=== PATIENT | female | born 1935 | race Caucasian/White ===

== ENCOUNTER → 2018-09-14 10:30 | Outpatient (CLI) | payer MEDICARE, OTHER, SELFPAY ==
--- NOTE | 2018-09-14 | DI.MG.S_ITS ---
BILATERAL DIGITAL SCREENING MAMMOGRAM 3D/2D WITH CAD: 09/14/2018 CLINICAL: Routine screening. Comparison is made to exams dated: 07/08/2017 mammogram, 01/14/2009 mammogram, and 08/17/2006 mammogram - [facility]. There are scattered fibroglandular elements in both breasts. Current study was also evaluated with a Computer Aided Detection (CAD) system. There are benign calcifications in both breasts. No significant masses, calcifications, or other findings are seen in either breast. There has been no significant interval change. IMPRESSION: There is no mammographic evidence of malignancy. A 1 year screening mammogram is recommended. This exam was interpreted at Station ID: [id number]. NOTE: For mammograms, a report in lay terms will be sent to the patient. Approximately 15% of breast malignancies will not be visualized mammographically. In the management of a palpable breast mass, a negative mammogram must not discourage biopsy of a clinically suspicious lesion. Electronically Signed By: Parth martin/malcom:09/15/2018 06:11:32 letter sent: Normal Exam ACR BI-RADS Category 2: Benign Finding(s) 3342F
== END ==
PROVIDERS: Family Provider Family Medicine; PCP Family Medicine; Visit Provider Family Medicine
DX: Z12.31 Encounter for screening mammogram for malignant neoplasm of breast (principal)
CPT/HCPCS: 77063; 77067

== ENCOUNTER → 2018-10-02 09:41 | Outpatient (CLI) | payer MEDICARE, OTHER, SELFPAY ==
[2018-10-02 10:45] LABS: Add Manual Diff / Slide Review NO; Basophils Absolute Auto 0 /uL (0-100); Basophils Percent Auto 0.6 % (0-2); Eosinophils Absolute Auto 100 /uL (0-450); Eosinophils Percent Auto 2.6 % (2-4); Hematocrit 43.4 % (36-46); Hemoglobin 14.3 g/dL (12.0-16.0); Lymphocytes Absolute Auto 1600 /uL (1100-4500); Lymphocytes Percent Auto 29.1 % (25-40); Mean Corpuscular Hemoglobin 30.9 PG (26-34); Mean Corpuscular Volume 93.5 fL (80-100); Monocytes Absolute Auto 400 /uL (0-900); Monocytes Percent Auto 6.7 % (3-14); Neutrophils Absolute Auto 3300 /uL (1500-7000); Platelet Count 153 X10^3/uL (150-400); Red Blood Cell Count 4.64 X10^6/uL (4.0-5.2); Red Cell Distribution Width 13.5 % (11.6-14.8); White Blood Cell Count 5.5 X10^3/uL (4.5-11.0)
[2018-10-02 10:53] LABS: Alanine Aminotransferase 29 IU/L (9-52); Albumin 4.3 g/dL (3.5-5.0); Albumin Globulin Ratio 1.7 (1.0-2.8); Alkaline Phosphatase 52 U/L (38-126); Aspartate Aminotransferase 24 IU/L (14-36); BUN Creatinine Ratio 25.6 (6-22); Bilirubin Total 0.5 mg/dL (0.2-1.3); Blood Urea Nitrogen 23 mg/dL (7-17); Calcium 9.8 mg/dL (8.4-10.2); Carbon Dioxide 26 mmol/L (22-32); Chloride 110 mmol/L (98-107); Cholesterol 173 mg/dL (140-199); Estimated Glomerular Filt Rate > 60.0 mL/min (>60); Globulin 2.6 g/dL (1.7-4.1); Glucose 102 mg/dL (80-110); HDL Cholesterol 58 mg/dL (40-60); HEMOLYSIS < 15 (0-50); LDL Cholesterol Calculated 92 mg/dL (<100); Potassium 4.3 mmol/L (3.4-5.1); Sodium 143 mmol/L (137-145); Total Protein 6.9 g/dL (6.3-8.2); Triglycerides 114 mg/dL (35-150)
[2018-10-02 11:22] LABS: Thyroid Stimulating Hormone 2.41 uIU/mL (0.47-4.68)
== END ==
PROVIDERS: PCP Family Medicine; Visit Provider Family Medicine
DX: E78.5 Hyperlipidemia, unspecified (principal); I10 Essential (primary) hypertension; Z92.29 Personal history of other drug therapy
CPT/HCPCS: 36415; 80053; 80061; 84443; 85025

== ENCOUNTER → 2018-12-20 11:12 | Outpatient (CLI) | payer MEDICARE, OTHER, SELFPAY | PROVIDERS: PCP Family Medicine; Visit Provider Family Medicine | DX: M54.9 Dorsalgia, unspecified (principal); R52 Pain, unspecified | CPT/HCPCS: 87077; 87086; 87186 ==

== ENCOUNTER → 2019-01-01 14:55 | Outpatient (CLI) | payer MEDICARE, OTHER, SELFPAY ==
[2019-01-01 15:22] LABS: Hemoglobin 15.9 g/dL (12.0-16.0); Mean Corpuscular HGB Conc 33.8 % (30-36); Mean Corpuscular Hemoglobin 30.6 PG (26-34); Mean Corpuscular Volume 90.5 fL (80-100); Platelet Count 217 X10^3/uL (150-400); Red Blood Cell Count 5.19 X10^6/uL (4.0-5.2); Red Cell Distribution Width 13.1 % (11.6-14.8); White Blood Cell Count 7.3 X10^3/uL (4.5-11.0)
[2019-01-01 15:49] LABS: Neutrophils Absolute Manual 4672 /uL (3000-5900); RBC Morphology Normal Morphology; Total Cells Counted 100
[2019-01-01 16:15] LABS: Alanine Aminotransferase 27 IU/L (9-52); Albumin 4.5 g/dL (3.5-5.0); Albumin Globulin Ratio 1.7 (1.0-2.8); Alkaline Phosphatase 52 U/L (38-126); Aspartate Aminotransferase 25 IU/L (14-36); BUN Creatinine Ratio 22.7 (6-22); Bilirubin Total 0.6 mg/dL (0.2-1.3); Blood Urea Nitrogen 34 mg/dL (7-17); Calcium 10.8 mg/dL (8.4-10.2); Carbon Dioxide 27 mmol/L (22-32); Chloride 101 mmol/L (98-107); Estimated Glomerular Filt Rate 33.2 mL/min (>60); Globulin 2.6 g/dL (1.7-4.1); Glucose 102 mg/dL (80-110); HEMOLYSIS < 15 (0-50); Potassium 4.9 mmol/L (3.4-5.1); Sodium 138 mmol/L (137-145); Total Protein 7.1 g/dL (6.3-8.2)
[2019-01-01 16:43] LABS: TSH w/ Reflex to FT4 2.34 uIU/mL (0.47-4.68)
[2019-01-01 17:03] LABS: Vitamin B12 662 pg/mL (239-931)
== END ==
PROVIDERS: PCP Family Medicine; Visit Provider Family Medicine
DX: E78.5 Hyperlipidemia, unspecified (principal); I10 Essential (primary) hypertension; R50.9 Fever, unspecified; R53.83 Other fatigue
CPT/HCPCS: 36415; 80053; 82607; 84443; 85025

== ENCOUNTER → 2019-01-08 10:23 | Outpatient (CLI) | payer MEDICARE, OTHER, SELFPAY ==
--- NOTE | 2019-01-26 16:23 | PM.CARDMON.1 ---
Medical Referral Coordinator Report Referral & Results Date Patient Seen: 01/08/19 Requesting provider: Benoit Tejada Indication: PVCs Duration of monitoring (days): 7 Diary information: There were 3 patient triggered events and 1 patient diary entry Patient events were associated with sinus rhythm, PACs, and PVCs Data: Minimum heart rate identified was 53 beats per minute at 04:07 on 01/11/2019 Maximum sinus heart rate was 129 beats per minute at 13:12 on 01/13/2019 Maximum overall heart rate was 207 beats per minute at 19:08 on 01/12/2019 during a 15 beat run of SVT Less than 1% of identified beats rather ventricular supraventricular ectopic in origin Patient had 6 runs of SVT the longest lasting 13.9 seconds at a rate of 117 beats per minute which suggest atrial tachycardia rather than true SVT Impression: Minor supraventricular dysrhythmias above Otherwise 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
== END ==
PROVIDERS: PCP Family Medicine; Visit Provider Family Medicine
DX: I49.3 Ventricular premature depolarization (principal)
CPT/HCPCS: 0296T

== ENCOUNTER → 2019-01-08 11:08 | Outpatient (CLI) | payer MEDICARE, OTHER, SELFPAY ==
--- NOTE | 2019-01-08 11:10 | DI.CT.S_ITS ---
PROCEDURE: CT ABDOMEN PELVIS WO CON INDICATIONS: Renal Failure Wt loss Abdominal Pain TECHNIQUE: Noncontrast 5 mm thick sections acquired from the diaphragms to the symphysis. 5 mm coronal and sagittal reformats were then performed. For radiation dose reduction, the following was used: automated exposure control, adjustment of mA and/or kV according to patient size. COMPARISON: CT abdomen pelvis 02/21/2006. FINDINGS: Image quality: Excellent. ABDOMEN: Lung bases: Lung bases are clear. Heart size is normal. Solid organs: Liver is normal in size. Heterogeneous hepatic steatosis. Gallbladder is unremarkable. Pancreas is normal in contours. Spleen is normal in size. No adrenal nodules. Kidneys are normal in size. No definite hydronephrosis. Cystic structures in the bilateral renal pelvis most likely peripelvic cysts. No hydroureter. A 5 mm calcification in at the distal right ureter, (2/65). This was not present on the CT from 2005. Peritoneum and bowel: Colonic surgical anastomosis in the left pelvis. Unenhanced bowel loops demonstrate normal wall thickness and caliber. No free fluid or air. The appendix is normal. No inflammatory change identified. Nodes and vessels: No retroperitoneal or mesenteric adenopathy by size criteria. Aorta and inferior vena cava are normal in caliber. Miscellaneous: Rectus diastases. Ventral abdominal wall mesh. Ventral abdominal wall scar. PELVIS: Genitourinary: Bladder wall thickness is normal. Miscellaneous: No inguinal hernias or adenopathy. Bones: No suspicious bony lesions. Lumbar spine degenerative change. Mild anterolisthesis of L4 on L5. No vertebral body compression fractures. IMPRESSION: 1. Calcification in the region of the distal right ureter measuring 5 mm. This is favored to represent a small kidney stone. No hydroureter or hydronephrosis appreciated. Small phlebolith is also noted differential. CT IVP would be helpful for further evaluation. 2. Probable bilateral parapelvic cysts. 3. No suspicious adenopathy. Dictated by: Bandar Roblero M.D. on 01/08/2019 at 12:46 Approved by: Bandar Roblero M.D. on 01/08/2019 at 13:08
== END ==
PROVIDERS: PCP Family Medicine; Visit Provider Family Medicine
DX: N19 Unspecified kidney failure (principal); I49.3 Ventricular premature depolarization; N28.89 Other specified disorders of kidney and ureter; R10.9 Unspecified abdominal pain; R63.4 Abnormal weight loss; M47.816 Spondylosis without myelopathy or radiculopathy, lumbar region; M43.16 Spondylolisthesis, lumbar region; K76.0 Fatty (change of) liver, not elsewhere classified; M62.08 Separation of muscle (nontraumatic), other site; Z98.0 Intestinal bypass and anastomosis status
CPT/HCPCS: 0296T; 0298T; 74176

== ENCOUNTER → 2019-01-24 08:56 | Outpatient (CLI) | payer MEDICARE, OTHER, SELFPAY ==
--- NOTE | 2019-01-24 08:58 | DI.ECHO.S_ITS ---
[facility] +---------+ Hospital +---------+ : : [address] [place] : : : : [id number] : : : : Phone: [phone] Echocardiogram Report + + :Name: KELSIE KAPLAN Study Date: 01/24/2019 Height: 63 in : :[facility] Exam Location: IS Weight: 145 lb : : Gender: Female BSA: 1.7 m2 : :: 1935 Age: 83 yrs BP: 148/91 mmHg: :Reason For Study: LBBB/PVC/ FATIGUE : :Ordering Physician: Dr. Laboy : :Terrell Performed By: Sasha Page : + + Interpretation Summary The left ventricle is normal in size. The ejection fraction is estimated to be 50-55%. There is a significant dyssynchronous contraction pattern, consistent with a conduction abnormality. Cannot exclude mild anteroseptal hypokinesis over and above the dyssynchronous wall motion caused by left bundle branch block There is mild mitral regurgitation. The right ventricular systolic pressure is estimated to be at least 27 mmHg based on an estimated right atrial pressure of 3 mm Hg. Procedure: A two-dimensional transthoracic echocardiogram with color flow and Doppler was performed. The study quality was technically adequate. There is no prior echocardiogram noted for this patient. The heart rate ranged between 63-79 bpm during the study. Left Ventricle: The left ventricle is normal in size. There is normal left ventricular wall thickness. Proximal septal thickening is noted. The ejection fraction is estimated to be 50-55%. There is a significant dyssynchronous contraction pattern, consistent with a conduction abnormality. Cannot exclude mild anteroseptal hypokinesis over and above the dyssynchronous wall motion caused by left bundle branch block. Right Ventricle: The right ventricle is mildly dilated. The right ventricular systolic function is normal. Atria: The left atrium is severely dilated. Right atrial size is normal. Chiari network (normal variant) is noted. There is no Doppler evidence for an interatrial shunt. Mitral Valve: The mitral valve leaflets appear mildly thickened, but open well. There is mild mitral annular calcification. There is mild mitral regurgitation. Aortic Valve: The aortic valve is trileaflet. The aortic valve opens well. There is trace aortic regurgitation. Tricuspid Valve: The tricuspid valve is normal in structure and function. There is trace tricuspid regurgitation. The right ventricular systolic pressure is estimated to be at least 27 mmHg based on an estimated right atrial pressure of 3 mm Hg. Pulmonic Valve: The pulmonic valve is not well visualized. There is trace pulmonic regurgitation. Great Vessels: The aortic root is normal size. The ascending aorta is mildly enlarged. The pulmonary artery is not well visualized, but is probably normal size. The IVC is of normal diameter and collapses greater than 50% with a sniff. This suggests a low right atrial pressure of 3 mm Hg. Pericardium/ Pleura There is no pericardial effusion. There is no pleural effusion. MMode/2D Measurements & Calculations LVIDd: 5.0 cm LVOT diam: 2.2 cm LVIDs: 3.9 cm Ao root diam: 3.3 cm FS: 22.7 % asc Aorta Diam: 4.1 cm EPSS: 0.85 cm IVSd: 0.88 cm LVPWd: 0.68 cm LV aaron. diameter/BSA (cm/m^2): 3.0 LV sys. diameter/BSA (cm/m^2): 2.3 LA A2 area: 27.0 cm2 RA long axis: 4.5 cm LA A4 area: 26.9 cm2 RA area: 13.9 cm2 LA length (vol): 6.2 cm RA vol: 36.4 ml LA vol: 99.4 ml RA : 21.6 ml/m2 LA vol index: 59.0 ml/m2 RVD1 (basal): 4.1 cm RVD2 (mid): 4.1 cm TAPSE: 2.0 cm Doppler Measurements & Calculations Ao V2 max: 123.5 cm/sec LVOT Max Isacc: 77.2 cm/sec Ao V2 mean: 86.2 cm/sec LV V1 max P.4 mmHg Ao max P.1 mmHg LV V1 VTI: 17.3 cm Ao mean P.3 mmHg ANUPAM(I,D): 2.4 cm2 Ao V2 VTI: 26.8 cm ANUPAM(V,D): 2.3 cm2 sev ratio: 0.65 ANUPAM indexed to BSA (cm^2/m^2): 1.4 Lat Peak E' Isacc: 7.5 cm/sec TR max isacc: 242.6 cm/sec MVA(VTI): 4.5 cm2 TR max P.5 mmHg PA V2 max: 55.4 cm/sec PA V2 mean: 37.2 cm/sec PA mean P.61 mmHg PA Accel Time: 0.06 sec MV V2 mean: 50.6 cm/sec SV(LVOT): 63.0 ml MV mean P.3 mmHg MV V2 VTI: 14.0 cm Reading Physician:05:10 PM
== END ==
PROVIDERS: PCP Family Medicine; Visit Provider Family Medicine
DX: I34.0 Nonrheumatic mitral (valve) insufficiency (principal); I44.7 Left bundle-branch block, unspecified; I49.3 Ventricular premature depolarization; R53.83 Other fatigue
CPT/HCPCS: 93306

== ENCOUNTER 2019-05-08 23:14 | Emergency (ER) | payer MEDICARE, OTHER, SELFPAY ==
[2019-05-08 23:20] VITALS: BP 215/87; PULSE 78; RESP 18; TEMP 36.3; O2SAT 97
[2019-05-08 23:38] LABS: Bilirubin Urine UA NEGATIVE (NEGATIVE); Color Urine UA YELLOW; Glucose Urine UA NEGATIVE (Negative); Ketones Urine UA TRACE (NEGATIVE); Leukocyte Esterase Urine UA 2+ (NEGATIVE); Nitrite Urine UA POSITIVE (Negative); Occult Blood Urine UA 3+ (Negative); Protein Urine UA TRACE (Negative); Urobilinogen Urine UA 0.2 E.U./dL (0.2)
[2019-05-08 23:45] LABS: Appearance Urine UA Slightly Cloudy; pH Urine UA 5.5 (4.5-8.0)
--- NOTE | 2019-05-08 23:45 | ED_ITS ---
HPI - Abdominal Pain General Chief Complaint: Abdominal Pain Stated Complaint: severe abdominal pain poss kidney stone Time Seen by Provider: 05/08/19 23:23 Source: patient Mode of arrival: Ambulatory Limitations: no limitations History of Present Illness HPI narrative: The patient developed abdominal pain with nausea and vomiting this afternoon. She has associated low back pain. She has urinary urgency. She has no fever but does feel like she has chills. She has vomiting. She has no diarrhea. She has occasional bladder infections, symptoms are not consistent what she is experiencing currently. She was on antibiotics about 1 week ago, she was given Zithromax for respiratory infection. She has no prior history of kidney stones. She has no prior history of chronic GI disease. Related Data Home Medications Medication Instructions Recorded Confirmed ASPIRIN (#ASPIRIN) 325 mg PO QDAY #0 02/01/12 04/15/19 Previous Rx's Medication Instructions Recorded triamcinolone acetonide 0 gm TOPICAL BID #1 tube 09/07/16 amlodipine 5 mg tablet 5 mg PO QDAY #90 tab 01/26/19 losartan 50 mg tablet 50 mg PO QDAY #90 tab 01/26/19 metoprolol succinate 25 mg 25 mg PO DAILY #90 tab 01/26/19 tablet,extended release 24 hr simvastatin 20 mg tablet 20 mg PO HS #90 tab 02/26/19 azithromycin 250 mg tablet See Rx Instructions PO .COMPLEX #6 04/15/19 tab benzonatate 100 mg capsule 100 mg PO BEDTIME #20 cap 04/15/19 triamterene 37.5 1 tab PO DAILY #90 each 04/20/19 mg-hydrochlorothiazide 25 mg tablet oxycodone-acetaminophen [Percocet] 1 tab PO Q4-6H PRN #14 tab 05/09/19 sulfamethoxazole-trimethoprim 1 tab PO BID 7 Days #14 tab 05/09/19 Allergies Allergy/AdvReac Type Severity Reaction Status Date / Time No Known Drug Allergies Allergy Verified 04/15/19 11:25 Review of Systems Review of Systems ROS Unobtainable: All systems reviewed & are unremarkable except as noted in HPI and below Constitutional Constitutional: Denies chills, Denies fever(s), Denies lethargy and Denies weakness Eyes Eyes: Denies change in vision ENT Ears, Nose, Mouth, and Throat: Denies sinus pressure and Denies sore throat Cardiovascular Cardiovascular: Denies chest pain, Denies irregular heart rhythm, Denies lightheadedness, Denies palpitations, Denies dyspnea and Denies orthopnea Respiratory Respiratory: Denies cough, Denies dyspnea and Denies wheezing Gastrointestinal Gastrointestinal: Reports as per HPI, Reports abdominal pain, Denies diarrhea, Reports nausea and Reports vomiting Genitourinary Genitourinary: Denies dysmenorrhea and Denies dysuria Musculoskeletal Musculoskeletal: Denies back pain and Denies numbness Integumentary/Breasts Skin/Breast: Denies erythema and Denies rash Neurologic Neurologic: Denies numbness and Denies weakness Endocrine Endocrine: Denies palpitations Allergic/Immunologic Allergic/Immunologic: Denies wheezing Patient History Medical History Community acquired pneumonia (Inactive) Hyperlipidemia (Acute) Pneumonia (Inactive) Surgical History History of cataract removal with insertion of prosthetic lens Status post colectomy Status post knee surgery Social History marital status: Smoking Status: Never smoker alcohol intake: current (ON OCCASION ) substance use type: does not use Smoking Status: Never smoker alcohol intake frequency: 0-2 drinks per day Substance Use Type: does not use Exam Initial Vital Signs Initial Vital Signs: Vital Signs Temperature 97.4 F L 05/08/19 23:20 Pulse Rate 78 05/08/19 23:20 Respiratory Rate 18 05/08/19 23:20 Blood Pressure 215/87 H 05/08/19 23:20 Pulse Oximetry 97 05/08/19 23:20 Const General: cooperative and well developed Nutritional Appearance: well nourished [facility] Head: normocephalic and atraumatic Mouth: oral mucosae normal and moist mucous membranes Throat: tonsils normal and uvula midline Neck Neck: normal visual inspection, trachea midline and No midline deformity Chest Chest: normal inspection of the chest Resp Effort & Inspection: normal respiratory effort and able to speak in complete sentences Auscultation: clear to auscultation bilaterally, no rales, no rhonchi and no wheezes Cardio Rate: regular rate Rhythm: regular rhythm Heart Sounds: S1 normal, S2 normal, normal, physiologic split S2, no click, no gallops, no murmurs and no rubs Pulses: normal peripheral pulses GI Inspection: non-distended Palpation: soft, no hepatosplenomegaly, No guarding, No pulsatile mass and No tender Auscultation: normal bowel sounds Back/Spine/Pelvis Thoracic/Lumbar Spine: thoracic and lumbar spine normal to inspection Skin General: no rashes or lesions noted Extrem General: full ROM, no clubbing, cyanosis or edema, no pedal edema and no calf tenderness Course Course Course Narrative: The patient presented with abdominal pain, cystitis with hematuria was noted. She was given IV Rocephin. She continued to have extreme pain. CT revealed obstructive uropathy of the right UVJ. The patient remains afebrile, she is now asymptomatic. The case was discussed with Dr. Abreu, neurology with the [facility]. Given her clinical presentation, he felt she was added for discharge home with antibiotics and pain meds. Given the size of stone she has a great chance of passing the stone without intervention. He agreed the patient could be seen at the [facility], but suggested local care if possible. I contacted Dr. Ortiz, he is on-call for the patient's PCM, Dr. Tejada. I suggested that Dr. Tejada/the clinic arrange urology consultation locally during office hours. Orders Ordered: ED Orders 05/08/19 23:24 Complete Blood Count AUTO DIFF Stat Comprehensive Metabolic Panel Stat Lipase Stat Partial Thromboplastin Time Stat Prothrombin Time INR Stat 05/08/19 23:30 Urinalysis and Microscopic Stat Urine Culture Stat EKG-12 Lead Stat 05/08/19 23:47 EKG-12 Lead Stat 05/09/19 01:16 CT kidney ureter bladder (KUB) Stat Sodium Chloride (Normal Saline 0.9%) 1,000 mls @ 250 mls/hr IV CONT SARAH Last Admin: 05/08/19 23:57 Dose: 250 mls/hr Documented by: ANA LUISA Discontinued Medications Furosemide (Lasix) 40 mg IV NOW ONE Stop: 05/09/19 01:29 Hydromorphone HCl (Dilaudid) 0.5 mg IV NOW ONE Stop: 05/08/19 23:47 Last Admin: 05/08/19 23:56 Dose: 0.5 mg Documented by: ANA LUISA Hydromorphone HCl (Dilaudid) 1 mg IV NOW ONE Stop: 05/09/19 01:18 Hydromorphone HCl (Dilaudid) 0.5 mg IV NOW ONE Stop: 05/09/19 01:24 Last Admin: 05/09/19 01:33 Dose: 0.5 mg Documented by: ANA LUISA Ceftriaxone Sodium/Dextrose (Rocephin) 1 gm in 50 mls @ 100 mls/hr IV NOW ONE Stop: 05/09/19 01:45 Last Infusion: 05/09/19 02:03 Dose: 100 mls/hr Documented by: Admin: 05/09/19 01:24 Dose: 100 mls/hr Documented by: ANA LUISA Ondansetron HCl (Zofran) 4 mg IV NOW ONE Stop: 05/08/19 23:47 Last Admin: 05/08/19 23:56 Dose: 4 mg Documented by: ANA LUISA Tamsulosin HCl (Flomax) 0.4 mg PO NOW ONE Stop: 05/09/19 04:42 Last Admin: 05/09/19 05:03 Dose: 0.4 mg Documented by: ANA LUISA Vital Signs Vital signs: Vital Signs - 8 hr 05/08/19 23:20 05/09/19 00:28 05/09/19 02:41 Temperature 97.4 F L Pulse Rate 78 77 88 Respiratory Rate 18 25 H 17 Blood Pressure 215/87 H Blood Pressure [Left Arm] 167/79 H 167/79 H Pulse Oximetry 97 97 97 05/09/19 03:43 Temperature Pulse Rate 84 Respiratory Rate 15 Blood Pressure Blood Pressure [Left Arm] 167/79 H Pulse Oximetry 97 MDM - Abdominal Pain Lab Data Result diagrams: 05/08/19 23:24 05/08/19 23:24 Labs: Lab Results 05/08/19 05/08/19 05/08/19 Range/Units 23:24 23:24 23:24 WBC 11.8 H (4.5-11.0) X10^3/uL RBC 4.77 (4.0-5.2) X10^6/uL Hgb 14.4 (12.0-16.0) g/dL Hct 43.0 (36-46) % MCV 90.1 (80-100) fL MCH 30.1 (26-34) PG MCHC 33.4 (30-36) % RDW 13.1 (11.6-14.8) % Plt Count 202 (150-400) X10^3/uL Neut % (Auto) 73.0 (50-75) % Lymph % (Auto) 20.1 L (25-40) % Graham % (Auto) 5.0 (3-14) % Eos % (Auto) 1.1 L (2-4) % Baso % (Auto) 0.8 (0-2) % Neut # (Auto) 8600 H (4541-6891) /uL Lymph # (Auto) 2400 (4376-0947) /uL Graham # (Auto) 600 (0-900) /uL Eos # (Auto) 100 (0-450) /uL Baso # (Auto) 100 (0-100) /uL PT 13.4 H (10.1-12.7) SECONDS INR 1.2 (0.9-1.3) APTT 31 (26.4-36.2) SECONDS Sodium 138 (137-145) mmol/L Potassium 3.7 (3.4-5.1) mmol/L Chloride 99 (98-107) mmol/L Carbon Dioxide 28 (22-32) mmol/L BUN 32 H (7-17) mg/dL Creatinine 1.30 H (0.52-1.04) mg/dL Estimated GFR 39.2 L (>60) mL/min BUN/Creatinine Ratio 24.6 H (6-22) Glucose 141 H (80-110) mg/dL Calcium 10.6 H (8.4-10.2) mg/dL Total Bilirubin 0.4 (0.2-1.3) mg/dL AST 35 (14-36) IU/L ALT 24 (<35) IU/L Alkaline Phosphatase 58 (38-126) U/L Total Protein 7.8 (6.3-8.2) g/dL Albumin 4.8 (3.5-5.0) g/dL Globulin 3.0 (1.7-4.1) g/dL Albumin/Globulin Ratio 1.6 (1.0-2.8) Lipase 173 (23-300) U/L Urine Color Urine Appearance Urine pH (4.5-8.0) Ur Specific [place] (1.000-1.035) Urine Protein (Negative) Urine Glucose (UA) (Negative) g/dL Urine Ketones (NEGATIVE) Urine Occult Blood (Negative) Urine Nitrate (Negative) Urine Bilirubin (NEGATIVE) Urine Urobilinogen (0.2) E.U./dL Ur Leukocyte Esterase (NEGATIVE) Urine RBC (0-5/HPF) Urine WBC (0-5/HPF) Urine Bacteria (None) Ur Culture Indicated? 05/08/19 05/08/19 05/08/19 Range/Units 23:24 23:24 23:30 WBC Cancelled (4.5-11.0) X10^3/uL RBC Cancelled (4.0-5.2) X10^6/uL Hgb Cancelled (12.0-16.0) g/dL Hct Cancelled (36-46) % MCV Cancelled (80-100) fL MCH Cancelled (26-34) PG MCHC Cancelled (30-36) % RDW Cancelled (11.6-14.8) % Plt Count Cancelled (150-400) X10^3/uL Neut % (Auto) Cancelled (50-75) % Lymph % (Auto) Cancelled (25-40) % Graham % (Auto) Cancelled (3-14) % Eos % (Auto) Cancelled (2-4) % Baso % (Auto) Cancelled (0-2) % Neut # (Auto) Cancelled (7783-3446) /uL Lymph # (Auto) Cancelled (6518-4117) /uL Graham # (Auto) Cancelled (0-900) /uL Eos # (Auto) Cancelled (0-450) /uL Baso # (Auto) Cancelled (0-100) /uL PT (10.1-12.7) SECONDS INR (0.9-1.3) APTT (26.4-36.2) SECONDS Sodium Cancelled (137-145) mmol/L Potassium Cancelled (3.4-5.1) mmol/L Chloride Cancelled (98-107) mmol/L Carbon Dioxide Cancelled (22-32) mmol/L BUN Cancelled (7-17) mg/dL Creatinine Cancelled (0.52-1.04) mg/dL Estimated GFR Cancelled (>60) mL/min BUN/Creatinine Ratio Cancelled (6-22) Glucose Cancelled (80-110) mg/dL Calcium Cancelled (8.4-10.2) mg/dL Total Bilirubin Cancelled (0.2-1.3) mg/dL AST Cancelled (14-36) IU/L ALT Cancelled (<35) IU/L Alkaline Phosphatase Cancelled (38-126) U/L Total Protein Cancelled (6.3-8.2) g/dL Albumin Cancelled (3.5-5.0) g/dL Globulin Cancelled (1.7-4.1) g/dL Albumin/Globulin Ratio Cancelled (1.0-2.8) Lipase Cancelled (23-300) U/L Urine Color Yellow Urine Appearance Slightly cloudy Urine pH 5.5 (4.5-8.0) Ur Specific [place] 1.020 (1.000-1.035) Urine Protein Trace H (Negative) Urine Glucose (UA) Negative (Negative) g/dL Urine Ketones Trace H (NEGATIVE) Urine Occult Blood 3+ H (Negative) Urine Nitrate Positive (Negative) Urine Bilirubin Negative (NEGATIVE) Urine Urobilinogen 0.2 (0.2) E.U./dL Ur Leukocyte Esterase 2+ H (NEGATIVE) Urine RBC 10-30/hpf H (0-5/HPF) Urine WBC 30-100/hpf H (0-5/HPF) Urine Bacteria Many (>30) H (None) Ur Culture Indicated? Specimen cultured Imaging Data KUB CT: Attestation: I personally reviewed and interpreted this imaging study as follows: (5.5 mm kidney stone over the right UVJ.) ECG Data Attestation: I personally reviewed and interpreted this ECG as follows: (Normal sinus rhythm rate 78 beats per minute. Occasional PVC. Voltage criteria consistent with LVH. Nonspecific ST T wave changes.) Discharge Plan Departure Patient Disposition: Home Clinical Impression: Right ureteral calculus Urinary tract infection Qualifiers: Urinary tract infection type: acute cystitis Hematuria presence: with hematuria Qualified Code(s): N30.01 - Acute cystitis with hematuria Instructions: DI for Kidney Stones, DI for Urinary Tract Infection (UTI) Activity Restrictions/Additional Instructions: Drink plenty of water stay well hydrated. Percocet every 4 hours as needed for pain. Septra DS 2 times daily for 7 days this is the antibiotic for the urinary infection. If you develop fever or increasing pain you should be seen again, perhaps in the ER Contact Dr. Tejada today. As came to arrange a consult with a urologist because of the kidney stone. You should screening all of your urine to determine at the kidney stone passes, if the kidney stone passes your concerns have passed Prescriptions: New sulfamethoxazole-trimethoprim 800-160 mg tablet 1 tab PO BID 7 Days Qty: 14 RF: 0 oxycodone-acetaminophen [Percocet] 5-325 mg tablet 1 tab PO Q4-6H PRN (Reason: pain) Qty: 14 RF: 0 No Action azithromycin 250 mg tablet See Rx Instructions PO .COMPLEX Qty: 6 RF: 0 benzonatate 100 mg capsule 100 mg PO BEDTIME Qty: 20 RF: 0 ASPIRIN (#ASPIRIN) 325 mg PO QDAY Qty: 0 RF: 0 triamcinolone acetonide 0.1 % cream 0 gm Topical BID Qty: 1 RF: 0 metoprolol succinate 25 mg tablet extended release 24 hr 25 mg PO DAILY Qty: 90 RF: 3 amlodipine [Norvasc] 5 mg tablet 5 mg PO QDAY Qty: 90 RF: 1 losartan [Cozaar] 50 mg tablet 50 mg PO QDAY Qty: 90 RF: 1 simvastatin [Zocor] 20 mg tablet 20 mg PO HS Qty: 90 RF: 1 triamterene-hydrochlorothiazid 37.5-25 mg tablet 1 tab PO DAILY Qty: 90 RF: 1 Referrals: Benoit Tejada MD [Primary Care Provider] -
[2019-05-08 23:50] LABS: Bacteria Urine Many (>30); Culture Indicated Urine Specimen Cultured; RBC Urine 10-30/HPF (0-5/HPF); WBC Urine 30-100/HPF (0-5/HPF)
[2019-05-08 23:56] LABS: Add Manual Diff / Slide Review NO; Basophils Absolute Auto 100 /uL (0-100); Basophils Percent Auto 0.8 % (0-2); Eosinophils Absolute Auto 100 /uL (0-450); Eosinophils Percent Auto 1.1 % (2-4); Hemoglobin 14.4 g/dL (12.0-16.0); Lymphocytes Absolute Auto 2400 /uL (1100-4500); Lymphocytes Percent Auto 20.1 % (25-40); Mean Corpuscular HGB Conc 33.4 % (30-36); Mean Corpuscular Hemoglobin 30.1 PG (26-34); Mean Corpuscular Volume 90.1 fL (80-100); Monocytes Absolute Auto 600 /uL (0-900); Neutrophils Absolute Auto 8600 /uL (1500-7000); Platelet Count 202 X10^3/uL (150-400); Red Blood Cell Count 4.77 X10^6/uL (4.0-5.2); Red Cell Distribution Width 13.1 % (11.6-14.8); White Blood Cell Count 11.8 X10^3/uL (4.5-11.0)
[2019-05-08] MEDS: ONDANSETRON 4 MG/2 ML INJ IV (23:56)
[2019-05-08] MEDS: HYDROMORPHONE 0.5 MG INJ IV (23:56)
[2019-05-08 23:57] LABS: INR 1.2 (0.9-1.3); Prothrombin Time 13.4 SECONDS (10.1-12.7)
[2019-05-08] MEDS: SODIUM CHLORIDE 0.9% 1,000 ML 250 ML IV (23:57)
[2019-05-09] LABS: PTT Partial Thromboplastin Tim 31 SECONDS (26.4-36.2)
[2019-05-09 00:02] LABS: Alanine Aminotransferase 24 IU/L (<35); Albumin 4.8 g/dL (3.5-5.0); Albumin Globulin Ratio 1.6 (1.0-2.8); Alkaline Phosphatase 58 U/L (38-126); Aspartate Aminotransferase 35 IU/L (14-36); BUN Creatinine Ratio 24.6 (6-22); Bilirubin Total 0.4 mg/dL (0.2-1.3); Blood Urea Nitrogen 32 mg/dL (7-17); Calcium 10.6 mg/dL (8.4-10.2); Carbon Dioxide 28 mmol/L (22-32); Chloride 99 mmol/L (98-107); Estimated Glomerular Filt Rate 39.2 mL/min (>60); Glucose 141 mg/dL (80-110); HEMOLYSIS 19 (0-50); Lipase 173 U/L (23-300); Potassium 3.7 mmol/L (3.4-5.1); Sodium 138 mmol/L (137-145); Total Protein 7.8 g/dL (6.3-8.2)
--- NOTE | 2019-05-09 00:26 | PC.NURSE ---
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
[2019-05-09 00:28] VITALS: BP 167/79; PULSE 77; RESP 25; O2SAT 97
--- NOTE | 2019-05-09 01:16 | DI.CT.S_ITS ---
PROCEDURE: CT KIDNEY URETER BLADDER (KUB) INDICATIONS: hematuria, pyuria. Back pain TECHNIQUE: Noncontrast 5 mm thick sections acquired from the diaphragms to the symphysis. 5 mm thick coronal and sagittal reformats were then performed. For radiation dose reduction, the following was used: automated exposure control, adjustment of mA and/or kV according to patient size. COMPARISON: None. FINDINGS: Image quality: Excellent. Lung bases: Lung bases are clear. Heart size is normal. Urinary system: Both kidneys are normal in size. No kidney stones. There is moderate right-sided hydronephrosis with mild perinephric fat stranding. Left-sided peripelvic cysts are present. The left ureter appears non-dilated throughout its expected course, but the right ureter is dilated into a impacted 5 mm far distal ureteral stone at the bladder margin. Bladder wall thickness is normal; no calcified bladder stones. Other solid organs: Liver is normal in size but is diffusely fatty infiltrated. Gallbladder appears normal. Pancreas is normal in contours. Spleen is normal in size. No adrenal nodules. Peritoneum and bowel: Unenhanced bowel loops demonstrate normal wall thickness and caliber. No free fluid or air. Nodes and vessels: No retroperitoneal or mesenteric adenopathy by size criteria. Aorta and inferior vena cava are normal in caliber. Abdominal wall: No ventral hernias. Pelvis: No free pelvic fluid. No inguinal hernias or adenopathy. Bones: No suspicious bony lesions. No vertebral body compression fractures. IMPRESSION: Diffuse fatty infiltration throughout the liver. Moderate hydronephrosis and hydroureter on the right to the level of the far distal ureter where a impacted 5 mm ureteral calculus is present. A stone of this size may not pass without urologic intervention. Perinephric edema on the right is secondary to the distal obstruction. Worsening hydronephrosis and hydroureter on the right may develop in this circumstance. Note: These findings are concordant with the preliminary interpretation. Dictated by: uJan Bernard M.D. on 05/09/2019 at 9:41 Approved by: Juan Bernard M.D. on 05/09/2019 at 9:55
[2019-05-09] MEDS: CEFTRIAXONE 1 GM/50 ML FROZ.PIGGY IV (01:24)
[2019-05-09] MEDS: HYDROMORPHONE 0.5 MG INJ IV (01:33)
[2019-05-09 02:41] VITALS: BP 167/79; PULSE 88; RESP 17; O2SAT 97
[2019-05-09 03:43] VITALS: BP 167/79; PULSE 84; RESP 15; O2SAT 97
[2019-05-09] MEDS: TAMSULOSIN 0.4 MG CAPSULE PO (05:03)
[2019-05-09 06:45] VITALS: BP 161/88; PULSE 80; RESP 14; O2SAT 99
== END 2019-05-09 06:48 | disposition home or self-care (01) ==
PROVIDERS: Emergency Provider Emergency Medicine; PCP Family Medicine
DX: N20.1 Calculus of ureter (principal); N30.01 Acute cystitis with hematuria; R10.9 Unspecified abdominal pain; R11.2 Nausea with vomiting, unspecified
CPT/HCPCS: 36415; 74176; 80053; 81001; 83690; 85025; 85610; 85730; 87077; 87086; 87186; 93005; 96365; 96375; 96376; 99284; 99285; J1170; J2405

== ENCOUNTER → 2019-11-15 17:02 | Outpatient (CLI) | payer MEDICARE, OTHER, SELFPAY ==
--- NOTE | 2019-11-15 | DI.MG.S_ITS ---
BILATERAL DIGITAL SCREENING MAMMOGRAM 3D/2D WITH CAD: 11/15/2019 CLINICAL: Routine screening. Comparison is made to exams dated: 09/14/2018 mammogram, 07/08/2017 mammogram, and 01/14/2009 mammogram - [facility]. There are scattered fibroglandular elements in both breasts. Current study was also evaluated with a Computer Aided Detection (CAD) system. There are benign calcifications in both breasts. No significant masses, calcifications, or other findings are seen in either breast. There has been no significant interval change. IMPRESSION: BENIGN There is no mammographic evidence of malignancy. A 1 year screening mammogram is recommended. This exam was interpreted at Station ID: [id number]. NOTE: For mammograms, a report in lay terms will be sent to the patient. Approximately 15% of breast malignancies will not be visualized mammographically. In the management of a palpable breast mass, a negative mammogram must not discourage biopsy of a clinically suspicious lesion. Electronically Signed By: Parth martin/malcom:11/16/2019 07:36:16 letter sent: Normal Exam ACR BI-RADS Category 2: Benign Finding(s) [id number]
== END ==
PROVIDERS: PCP Family Medicine; Referring Provider Family Medicine; Visit Provider Family Medicine
DX: Z12.31 Encounter for screening mammogram for malignant neoplasm of breast (principal)
CPT/HCPCS: 77063; 77067

== ENCOUNTER → 2020-06-05 08:30 | Outpatient (CLI) | payer MEDICARE, OTHER, SELFPAY ==
[2020-06-05 09:51] LABS: Add Manual Diff / Slide Review NO; Basophils Absolute Auto 0 /uL (0-100); Basophils Percent Auto 0.4 % (0-2); Eosinophils Absolute Auto 200 /uL (0-450); Eosinophils Percent Auto 3.8 % (2-4); Hematocrit 42.9 % (36-46); Hemoglobin 14.1 g/dL (12.0-16.0); Lymphocytes Absolute Auto 1800 /uL (1100-4500); Lymphocytes Percent Auto 30.4 % (25-40); Mean Corpuscular HGB Conc 32.8 % (30-36); Mean Corpuscular Hemoglobin 30.3 PG (26-34); Mean Corpuscular Volume 92.2 fL (80-100); Monocytes Absolute Auto 400 /uL (0-900); Neutrophils Absolute Auto 3400 /uL (1500-7000); Neutrophils Percent Auto 58.4 % (50-75); Platelet Count 145 X10^3/uL (150-400); Red Blood Cell Count 4.65 X10^6/uL (4.0-5.2); Red Cell Distribution Width 13.5 % (11.6-14.8); White Blood Cell Count 5.9 X10^3/uL (4.5-11.0)
[2020-06-05 10:12] LABS: Alanine Aminotransferase 23 IU/L (<35); Albumin 4.3 g/dL (3.5-5.0); Albumin Globulin Ratio 1.7 (1.0-2.8); Alkaline Phosphatase 51 U/L (38-126); Aspartate Aminotransferase 26 IU/L (14-36); BUN Creatinine Ratio 31.4 (6-22); Bilirubin Total 0.4 mg/dL (0.2-1.3); Blood Urea Nitrogen 27 mg/dL (7-17); Calcium 10.1 mg/dL (8.4-10.2); Carbon Dioxide 28 mmol/L (22-32); Chloride 105 mmol/L (98-107); Cholesterol 178 mg/dL (140-199); Estimated Glomerular Filt Rate > 60.0 mL/min (>60); Globulin 2.5 g/dL (1.7-4.1); Glucose 105 mg/dL (80-110); HDL Cholesterol 65 mg/dL (40-60); HEMOLYSIS < 15 (0-50); LDL Cholesterol Calculated 91 mg/dL (<100); Potassium 4.1 mmol/L (3.4-5.1); Sodium 139 mmol/L (137-145); Total Protein 6.8 g/dL (6.3-8.2); Triglycerides 112 mg/dL (35-150)
== END ==
PROVIDERS: PCP Family Medicine; Referring Provider Family Medicine; Visit Provider Family Medicine
DX: E78.5 Hyperlipidemia, unspecified (principal); I10 Essential (primary) hypertension
CPT/HCPCS: 36415; 80053; 80061; 84443; 85025

== ENCOUNTER 2022-08-18 11:00 | Emergency (ER) | payer MEDICARE, OTHER, SELFPAY ==
[2022-08-18] VITALS (12 sets, daily range): BP systolic 100–178; BP diastolic 61–112; PULSE 62–87; RESP 19–20; TEMP 36.6; O2SAT 93–98; BMI 28.3
--- NOTE | 2022-08-18 11:13 | DI.RAD.S_ITS ---
PROCEDURE: XR CHEST 2V INDICATIONS: cough x 30 days TECHNIQUE: 2 views of the chest were acquired. COMPARISON: [facility], , CHEST 1 VIEW, 02/01/2017, 14:53. FINDINGS: Surgical changes and devices: None. Lungs and pleura: Lungs are clear. No pleural effusions or pneumothorax. Mediastinum: Mildly tortuous thoracic aorta is seen. Heart size is normal. Bones and chest wall: No suspicious bony abnormalities. Soft tissues appear unremarkable. IMPRESSION: No acute cardiopulmonary process. Dictated by: Baljinder Diego M.D. on 08/18/2022 at 10:42 Approved by: Baljinder Diego M.D. on 08/18/2022 at 10:42
[2022-08-18 12:31] LABS: Adenovirus Not Detected (Not Detect); B. parapertussis Not Detected (Not Detecte); Bordetella pertussis Not Detected (Not Detecte); Chlamydophila pneumoniae Not Detected (Not Detect); Coronavirus 229E Not Detected (Not Detect); Coronavirus HKU1 Not Detected (Not Detect); Coronavirus NL 63 Not Detected (Not Detect); Coronavirus OC43 Not Detected (Not Detect); Human Metapneumovirus Not Detected (Not Detect); Human Rhinovirus/Enterovirus Not Detected (Not Detect); Influenza A Not Detected (Not Detect); Influenza B Not Detected (Not Detect); Mycoplasma pneumoniae Not Detected (Not Detect); Parainfluenza Virus 1 Not Detected (Not Detect); Parainfluenza Virus 2 Not Detected (Not Detect); Parainfluenza Virus 3 Not Detected (Not Detect); Parainfluenza Virus 4 Not Detected (Not Detect); Respiratory Syncytial Virus Not Detected (Not Detect); SARS- CoV-2 Not Detected (Not Detecte)
--- NOTE | 2022-08-18 12:41 | ED_ITS ---
HPI - General Adult General Chief complaint: Upper Respiratory Symptoms Stated complaint: cough T-30/went to [facility] T-7 getting worse Time Seen by Provider: 08/18/22 12:13 Source: patient Mode of arrival: Ambulatory History of Present Illness HPI narrative: Patient is an 86-year-old female. No prior underlying lung pathology who is here for evaluation of approximately 30 days of a dry cough. She is also having sinus congestion sore throat. No fevers. It is nonproductive cough. No rashes. Has tried multiple [id number] cough and cold preparations without any improvement. She is been seen at the walk-in clinic and was given a prescription for Tessalon which has not helped any of her symptoms as well. No recent travel. No change in medications. She is not on lisinopril. Related Data Home Medications Medication Instructions Recorded Confirmed ASPIRIN (#ASPIRIN) 325 mg PO QDAY ##0 02/01/12 08/10/22 Previous Rx's Medication Instructions Recorded metoprolol tartrate 25 mg tablet 25 mg PO BID #180 tabs 07/21/21 triamterene 37.5 1 tab PO DAILY #90 ea 12/02/21 mg-hydrochlorothiazide 25 mg tablet simvastatin 20 mg tablet 20 mg PO BEDTIME #90 tabs 03/30/22 amlodipine 5 mg tablet See Rx Instructions .Route 05/04/22 .COMPLEX #90 tabs losartan 50 mg tablet See Rx Instructions .Route 07/28/22 .COMPLEX #90 tabs benzonatate 100 mg capsule 100 mg PO TID PRN cough #20 caps 08/10/22 azithromycin 250 mg tablet See Rx Instructions PO .COMPLEX #6 08/18/22 tabs Allergies Allergy/AdvReac Type Severity Reaction Status Date / Time No Known Drug Allergies Allergy Verified 08/10/22 11:31 Review of Systems Constitutional Constitutional: Reports system reviewed and no additional complaints, except as documented Cardiovascular Cardiovascular: Reports system reviewed and no additional complaints, except as documented Respiratory Respiratory: Reports system reviewed and no additional complaints, except as documented Gastrointestinal Gastrointestinal: Reports system reviewed and no additional complaints, except as documented Integumentary/Breasts Skin/Breast: Reports system reviewed and no additional complaints, except as documented Neurologic Neurologic: Reports system reviewed and no additional complaints, except as documented Hematologic/Lymphatic On Anticoagulants: No Patient History Medical History (Updated 08/18/22 @ 13:19 by Kaveh Pichardo DO) Community acquired pneumonia Hyperlipidemia Pneumonia Surgical History History of cataract removal with insertion of prosthetic lens Status post colectomy Status post knee surgery Social History marital status: Smoking Status: Never smoker alcohol intake: current substance use type: does not use Smoking Status: Never smoker alcohol intake frequency: 0-2 drinks per day Substance Use Type: does not use Exam Initial Vital Signs Initial Vital Signs: Vital Signs Temperature 97.9 F 08/18/22 11:05 Pulse Rate 87 08/18/22 11:05 Respiratory Rate 20 08/18/22 11:05 Blood Pressure 174/112 H 08/18/22 11:05 Pulse Oximetry 97 08/18/22 11:05 Oxygen Delivery Method Room Air 08/18/22 11:05 Const General: cooperative, comfortable and No ill appearing HENMT Head: normal to inspection and normocephalic Resp Effort & Inspection: normal respiratory effort Auscultation: clear to auscultation bilaterally Cardio Rate: regular rate Rhythm: regular rhythm Skin General: no rashes or lesions noted Neuro General: patient alert, patient awake, patient oriented x3 and moves all extremities Extrem General: normal to inspection and capillary refill normal Course Orders Ordered: ED Orders 08/18/22 11:11 Respiratory Panel (Film Array) Stat 08/18/22 11:13 Chest [XR chest 2V] Stat Vital Signs Vital signs: Vital Signs - 8 hr 08/18/22 11:05 08/18/22 11:51 08/18/22 11:52 Temperature 97.9 F Pulse Rate 87 64 Respiratory Rate 20 Blood Pressure 174/112 H Pulse Oximetry 97 93 97 Oxygen Delivery Method Room Air 08/18/22 11:52 08/18/22 12:00 08/18/22 12:01 Temperature Pulse Rate 62 Respiratory Rate Blood Pressure 178/81 H 149/75 H Pulse Oximetry 97 Oxygen Delivery Method 08/18/22 12:01 08/18/22 12:30 08/18/22 12:31 Temperature Pulse Rate 62 63 63 Respiratory Rate Blood Pressure Pulse Oximetry 98 96 96 Oxygen Delivery Method 08/18/22 12:31 Temperature Pulse Rate Respiratory Rate Blood Pressure 100/61 Pulse Oximetry Oxygen Delivery Method Medical Decision Making Lab Data Lab results reviewed: Yes I reviewed the patient's lab results. Labs: Lab Results 08/18/22 Range/Units 11:11 Chlamy pneumoniae PCR Not detected (Not Detect) Adenovirus (PCR) Not detected (Not Detect) B. pertussis DNA (PCR) Not detected (Not Detecte) B.parapertussis DNA PCR Not detected (Not Detecte) Coronavirus OC43 (PCR) Not detected (Not Detect) Coronavirus HKU1 (PCR) Not detected (Not Detect) Coronavirus 229E (PCR) Not detected (Not Detect) SARS-CoV-2 (PCR) Not detected (Not Detecte) Coronavirus NL63 (PCR) Not detected (Not Detect) Human Metapneumovir PCR Not detected (Not Detect) Influenza Type A (PCR) Not detected (Not Detect) Influenza Type B (PCR) Not detected (Not Detect) M. pneumoniae (PCR) Not detected (Not Detect) Parainfluenza 1 (PCR) Not detected (Not Detect) Parainfluenza 2 (PCR) Not detected (Not Detect) Parainfluenza 3 (PCR) Not detected (Not Detect) Parainfluenza 4 (PCR) Not detected (Not Detect) RSV (PCR) Not detected (Not Detect) Entero/Rhino (PCR) Not detected (Not Detect) Imaging Data Chest x-ray: Radiologist's Impression: PROCEDURE:? XR CHEST 2V ? INDICATIONS:? cough x 30 days ? TECHNIQUE:? 2 views of the chest were acquired.? ? COMPARISON:? [facility], , CHEST 1 VIEW, 02/01/2017, 14:53. ? FINDINGS:? ? Surgical changes and devices:? None.? ? Lungs and pleura:? Lungs are clear.? No pleural effusions or pneumothorax.? ? Mediastinum:? Mildly tortuous thoracic aorta is seen.? Heart size is normal.? ? Bones and chest wall:? No suspicious bony abnormalities.? Soft tissues appear unremarkable.? ? IMPRESSION:? No acute cardiopulmonary process MDM Narrative Medical decision making narrative: Patient is not toxic appearing. She does have a dry cough and does have symptoms consistent with a fairly significant sinus congestion. Her respiratory panel was negative. Chest x-ray shows no signs of pneumonia. She is had symptoms for the past month. She is tried decongestants without any improvement. She does have tenderness in her sinuses. Plan will be is to have her continue with decongestants to include antihistamines and also a nasal steroid. She was given a written prescription for antibiotics that if her symptoms do not improve in the next couple days and she can fill this prescription and start taking as directed. She was given return precautions. She expressed understanding and agreement. Discharge Plan Departure Patient Disposition: Home Clinical Impression: Sinus congestion, Cough Instructions: Cough (Alternative Therapy), Cough Activity Restrictions/Additional Instructions: I do recommend that you start taking a oral antihistamine such as Claritin or Sonam or Zyrtec. You can purchase these medications [id number]. The generic versions are appropriate. Also recommend a nasal spray such as Flonase or Nasonex. Once again the generic versions are appropriate. If your symptoms have not improved in the next couple days with this treatment please fill the prescription and start taking it as directed. Contact your primary doctor for follow-up. Prescriptions: New azithromycin 250 mg tablet See Rx Instructions .ROUTE .COMPLEX Qty: 6 0RF Rx Instructions: For 250 mg dose pack: take 500 mg today (day 1), then 250 mg for 4 days (days 2-5) No Action metoprolol tartrate 25 mg tablet 25 mg PO BID Qty: 180 1RF benzonatate 100 mg capsule 100 mg PO TID PRN (Reason: cough) Qty: 20 0RF ASPIRIN (#ASPIRIN) 325 mg PO QDAY Qty: 0 triamterene-hydrochlorothiazid 37.5-25 mg tablet 1 tab PO DAILY Qty: 90 1RF simvastatin 20 mg tablet 20 mg PO BEDTIME Qty: 90 1RF amlodipine 5 mg tablet See Rx Instructions .ROUTE .COMPLEX Qty: 90 3RF Dose Instruction: TAKE ONE TABLET BY MOUTH ONE TIME DAILY Rx Instructions: TAKE ONE TABLET BY MOUTH ONE TIME DAILY losartan 50 mg tablet See Rx Instructions .ROUTE .COMPLEX Qty: 90 0RF Dose Instruction: TAKE ONE TABLET BY MOUTH ONE TIME DAILY Rx Instructions: TAKE ONE TABLET BY MOUTH ONE TIME DAILY Referrals: Benoit Tejada MD [Primary Care Provider] - Stand Alone Forms: Patient Portal/API
== END 2022-08-18 14:11 | disposition home or self-care (01) ==
PROVIDERS: Emergency Provider Emergency Medicine; PCP Family Medicine
DX: R05.9 Cough, unspecified (principal); R09.81 Nasal congestion; Z20.822 Contact with and (suspected) exposure to COVID-19
CPT/HCPCS: 71046; 87633; 99283

== ENCOUNTER → 2023-05-16 10:07 | Outpatient (CLI) | payer MEDICARE, SELFPAY ==
[2023-05-16 10:58] LABS: Add Manual Diff / Slide Review NO; Basophils Absolute Auto 0 /uL (0-100); Basophils Percent Auto 0.6 % (0-2); Eosinophils Absolute Auto 200 /uL (0-450); Eosinophils Percent Auto 3.2 % (2-4); Hematocrit 42.3 % (36-46); Hemoglobin 14.3 g/dL (12.0-16.0); Lymphocytes Absolute Auto 1800 /uL (1100-4500); Lymphocytes Percent Auto 29.1 % (25-40); Mean Corpuscular HGB Conc 33.8 % (30-36); Mean Corpuscular Hemoglobin 30.4 PG (26-34); Monocytes Absolute Auto 400 /uL (0-900); Monocytes Percent Auto 5.9 % (3-14); Neutrophils Absolute Auto 3700 /uL (1500-7000); Neutrophils Percent Auto 61.2 % (50-75); Platelet Count 187 X10^3/uL (150-400); Red Cell Distribution Width 13.7 % (11.6-14.8)
[2023-05-16 11:19] LABS: Alanine Aminotransferase 30 IU/L (<35); Albumin 4.3 g/dL (3.5-5.0); Albumin Globulin Ratio 1.6 (1.0-2.8); Alkaline Phosphatase 37 U/L (38-126); Aspartate Aminotransferase 28 IU/L (14-36); BUN Creatinine Ratio 32.5 (6-22); Bilirubin Total 0.5 mg/dL (0.2-1.3); Blood Urea Nitrogen 39 mg/dL (7-17); Calcium 10.6 mg/dL (8.4-10.2); Carbon Dioxide 28 mmol/L (22-32); Chloride 102 mmol/L (98-107); Cholesterol 195 mg/dL (140-199); Estimated Glomerular Filt Rate 44 mL/min (>60); Globulin 2.7 g/dL (1.7-4.1); Glucose 102 mg/dL (80-110); HDL Cholesterol 62 mg/dL (40-60); HEMOLYSIS < 15 (0-50); LDL Cholesterol Calculated 113 mg/dL (<100); Sodium 139 mmol/L (137-145); Triglycerides 101 mg/dL (35-150)
== END ==
PROVIDERS: PCP Family Medicine; Referring Provider Physician Assistant; Visit Provider Physician Assistant
DX: E78.5 Hyperlipidemia, unspecified (principal); I10 Essential (primary) hypertension; Z79.82 Long term (current) use of aspirin
CPT/HCPCS: 36415; 80053; 80061; 84443; 85025

== ENCOUNTER → 2023-08-10 09:47 | Outpatient (CLI) | payer MEDICARE, OTHER, SELFPAY ==
--- NOTE | 2023-08-10 09:49 | DI.US.S_ITS ---
PROCEDURE: US PERIPH VENOUS LOW EXTREM RT INDICATIONS: Right leg swelling TECHNIQUE: Real-time imaging, as well as color and pulse Doppler interrogation, were performed of the lower extremity deep veins from the inguinal ligament to the popliteal fossa, with documentation of the visualized calf veins. COMPARISON: None. FINDINGS: The common femoral, femoral, popliteal, and the visualized calf veins are normally compressible, and free of intraluminal thrombus. Color and pulse Doppler demonstrate normal phasic intraluminal flow. There is normal augmentation response to distal compression maneuver. IMPRESSION: No findings of lower extremity deep venous thrombosis. Dictated by: Stella Fenton M.D. on 08/10/2023 at 10:34 Approved by: Stella Fenton M.D. on 08/10/2023 at 10:36
--- NOTE | 2023-08-10 09:49 | DI.RAD.S_ITS ---
PROCEDURE: XR ANKLE RT MIN 3V INDICATIONS: Right ankle pain TECHNIQUE: 3 views of the ankle were acquired. COMPARISON: None. FINDINGS: Bones: No fractures or dislocations. Ankle mortise is normally aligned. No suspicious bony lesions. Small calcaneal enthesophytes. Enthesophyte at the medial malleolus. Soft tissues: No tibiotalar joint effusion. Achilles tendon appears normal. Arterial vascular calcifications. IMPRESSION: No acute fracture identified. [id number] degenerative changes. Dictated by: Bandar Roblero M.D. on 08/10/2023 at 12:39 Approved by: Bandar Roblero M.D. on 08/10/2023 at 12:41
--- NOTE | 2023-08-10 09:49 | DI.RAD.S_ITS ---
PROCEDURE: XR TIBIA FUBULA RT 2V INDICATIONS: Right lower leg injury TECHNIQUE: 2 views of the tibia and fibula were acquired. COMPARISON: [facility], CR, XR KNEE ARTHRITIC SERIES LT, 08/25/2021, 10:03. FINDINGS: Bones: Right knee medial compartment hemiarthroplasty. No periprosthetic lucency to suggest loosening or infection. Brain hardware projects in the expected location. No fractures or dislocations. No suspicious bony lesions. Soft tissues: No suspicious soft tissue calcifications or masses. Chondrocalcinosis. IMPRESSION: No acute bony abnormality. Right knee medial compartment hemiarthroplasty appears stable. Dictated by: Bandar Roblero M.D. on 08/10/2023 at 12:37 Approved by: Bandar Roblero M.D. on 08/10/2023 at 12:39
== END ==
LOC: US 09:49
PROVIDERS: PCP Family Medicine; Referring Provider Nurse Practitioner Family; Visit Provider Nurse Practitioner Family
DX: M79.89 Other specified soft tissue disorders (principal); M25.571 Pain in right ankle and joints of right foot; Z96.651 Presence of right artificial knee joint
CPT/HCPCS: 73590; 73610; 93971

== ENCOUNTER → 2023-11-08 15:45 | Outpatient (CLI) | payer MEDICARE, SELFPAY ==
[2023-11-08 17:05] LABS: Alanine Aminotransferase 26 IU/L (<35); Albumin 4.2 g/dL (3.5-5.0); Albumin Globulin Ratio 1.7 (1.0-2.8); Alkaline Phosphatase 57 U/L (38-126); Aspartate Aminotransferase 31 IU/L (14-36); BUN Creatinine Ratio 29.4 (6-22); Bilirubin Total 0.4 mg/dL (0.2-1.3); Blood Urea Nitrogen 32 mg/dL (7-17); Calcium 9.7 mg/dL (8.4-10.2); Carbon Dioxide 23 mmol/L (22-32); Chloride 110 mmol/L (98-107); Estimated Glomerular Filt Rate 49 mL/min (>60); Globulin 2.5 g/dL (1.7-4.1); Glucose 114 mg/dL (80-110); HEMOLYSIS < 15 (0-50); Magnesium 2.1 mg/dL (1.6-2.3); Potassium 3.8 mmol/L (3.4-5.1); Sodium 140 mmol/L (137-145); Total Protein 6.7 g/dL (6.3-8.2)
[2023-11-08 17:10] LABS: Creatinine Urine Random 176.11 mg/dL
[2023-11-08 17:15] LABS: Microalbumin Urine Random 1.1 mg/dL (0-1.6)
[2023-11-08 17:33] LABS: TSH w/ Reflex to FT4 2.42 uIU/mL (0.47-4.68)
== END ==
PROVIDERS: PCP Family Medicine; Referring Provider Physician Assistant; Visit Provider Physician Assistant
DX: I10 Essential (primary) hypertension (principal); R53.83 Other fatigue; I48.91 Unspecified atrial fibrillation
CPT/HCPCS: 36415; 80053; 82043; 82570; 83735; 84443

== ENCOUNTER → 2023-11-28 10:46 | Outpatient (CLI) | payer MEDICARE, OTHER, SELFPAY ==
[2023-11-28 11:37] LABS: Prothrombin Time 141.1 SECONDS (9.4-12.5)
== END ==
LOC: LAB 10:47
PROVIDERS: PCP Family Medicine; Referring Provider Family Medicine; Visit Provider Family Medicine
DX: R79.1 Abnormal coagulation profile (principal); I48.91 Unspecified atrial fibrillation
CPT/HCPCS: 36415; 85610

== ENCOUNTER → 2023-12-01 08:56 | Outpatient (CLI) | payer MEDICARE, SELFPAY ==
[2023-12-01 09:22] LABS: Prothrombin Time 59.4 SECONDS (9.4-12.5)
[2023-12-01 09:28] LABS: INR 5.1 (0.9-1.3)
== END ==
PROVIDERS: PCP Family Medicine; Referring Provider Family Medicine; Visit Provider Family Medicine
DX: I48.91 Unspecified atrial fibrillation (principal); Z79.01 Long term (current) use of anticoagulants
CPT/HCPCS: 36415; 85610

== ENCOUNTER → 2023-12-16 09:08 | Outpatient (CLI) | payer MEDICARE, OTHER, SELFPAY ==
[2023-12-16 09:58] LABS: Prothrombin Time 74.8 SECONDS (9.4-12.5)
[2023-12-16 10:20] LABS: INR 6.4 (0.9-1.3)
== END ==
PROVIDERS: PCP Family Medicine; Referring Provider Family Medicine; Visit Provider Family Medicine
DX: Z51.81 Encounter for therapeutic drug level monitoring (principal); Z79.01 Long term (current) use of anticoagulants
CPT/HCPCS: 36415; 85610

== ENCOUNTER → 2023-12-27 15:11 | Outpatient (CLI) | payer MEDICARE, OTHER, SELFPAY ==
--- NOTE | 2023-12-27 20:01 | DI.NM.S_ITS ---
DATE OF SERVICE: 12/27/2023 EXERCISE TREADMILL STRESS TEST PROCEDURE: Exercise treadmill stress test without imaging. ORDERING PROVIDER: Hai Diego MD. INDICATIONS: The patient is an 88-year-old female with hypertension, hyperlipidemia, paroxysmal atrial fibrillation, and exertional dyspnea. FINDINGS: 1. The patient was able to exercise for 5 minutes on a standard Dario protocol suggesting very good exercise capacity with an SOFIA of -22%, achieving 7.0 METS. 2. She had a mildly blunted chronotropic response with a resting heart rate of 76 bpm, increasing to a maximum of 107 bpm (80% of her predicted maximum), and had not held her sotalol prior to stress testing. She had a normal blood pressure response. 3. She had no chest discomfort or other anginal symptoms except for moderate exertional dyspnea. 4. Her resting ECG showed sinus rhythm with a moderate first-degree AV block but normal ST segments and normal QT interval. With stress, there are no significant ST-segment shifts to suggest ischemia. She had occasional PVCs, rarely in couplets and triplets, but no other arrhythmias. IMPRESSION: 1. Probable normal exercise treadmill stress test for ischemia but with mildly reduced sensitivity because of a mildly blunted chronotropic response, achieving 80% of her predicted maximal heart rate. 2. Very good exercise capacity without angina but limiting exertional dyspnea. 3. She was in sinus rhythm and developed occasional PVCs, rarely in couplets and triplets, but no other arrhythmias. Yudi Rowley - ROSI/aracely/SAMMIE doc#: [id number]/job#: [id number] dd: 12/27/2023 17:18:00 dt: 12/27/2023 19:34:00 DICTATING MD/COPIES TO: Herb Rodriguez MD; Hai Diego MD COPIES MNE: ONEIDA;
== END ==
PROVIDERS: PCP Family Medicine; Referring Provider Internal Medicine; Visit Provider Internal Medicine
DX: I48.0 Paroxysmal atrial fibrillation (principal); I10 Essential (primary) hypertension; E78.5 Hyperlipidemia, unspecified; R06.09 Other forms of dyspnea
CPT/HCPCS: 93017

== ENCOUNTER → 2024-01-16 14:19 | Outpatient (CLI) | payer MEDICARE, SELFPAY ==
[2024-01-16 14:51] LABS: Add Manual Diff / Slide Review NO; Basophils Absolute Auto 100 /uL (0-100); Basophils Percent Auto 0.6 % (0-2); Eosinophils Absolute Auto 200 /uL (0-450); Eosinophils Percent Auto 1.8 % (2-4); Hematocrit 44.3 % (36-46); Lymphocytes Absolute Auto 2400 /uL (1100-4500); Mean Corpuscular HGB Conc 33.8 % (30-36); Mean Corpuscular Volume 91.8 fL (80-100); Monocytes Absolute Auto 600 /uL (0-900); Monocytes Percent Auto 6.7 % (3-14); Neutrophils Absolute Auto 5700 /uL (1500-7000); Neutrophils Percent Auto 63.9 % (50-75); Platelet Count 221 X10^3/uL (150-400); Red Blood Cell Count 4.83 X10^6/uL (4.0-5.2); Red Cell Distribution Width 13.3 % (11.6-14.8)
[2024-01-16 15:09] LABS: Hemoglobin A1C% w Est Avg Glu 5.6 % (4.0-6.0)
[2024-01-16 15:11] LABS: Appearance Urine UA CLEAR; Bilirubin Urine UA NEGATIVE (NEGATIVE); Color Urine UA YELLOW; Glucose Urine UA NEGATIVE (Negative); Ketones Urine UA NEGATIVE (NEGATIVE); Leukocyte Esterase Urine UA 1+ (NEGATIVE); Nitrite Urine UA NEGATIVE (Negative); Occult Blood Urine UA TRACE-INTACT (Negative); Protein Urine UA NEGATIVE (Negative); Specific Gravity Urine UA 1.025 (1.000-1.035); Urobilinogen Urine UA 0.2 E.U./dL (0.2)
[2024-01-16 15:13] LABS: pH Urine UA 5.5 (4.5-8.0)
[2024-01-16 15:18] LABS: Erythrocyte Sedimentation Rate 56 MM/HR (0-20)
[2024-01-16 15:20] LABS: Bacteria Urine Few (2-10); Culture Indicated Urine Specimen Cultured; Mucus Urine 1+ (Negative); RBC Urine 0-1/HPF (0-5/HPF); Squamous Epithelial Cell Urine 5-10 /HPF (0-5/HPF); Urine Volume 10mL (spun); WBC Urine 1-5/HPF (0-5/HPF)
[2024-01-16 15:35] LABS: Alanine Aminotransferase 25 IU/L (<35); Albumin 4.2 g/dL (3.5-5.0); Albumin Globulin Ratio 1.6 (1.0-2.8); Alkaline Phosphatase 56 U/L (38-126); Aspartate Aminotransferase 24 IU/L (14-36); BUN Creatinine Ratio 27.9 (6-22); Bilirubin Total 0.3 mg/dL (0.2-1.3); Blood Urea Nitrogen 29 mg/dL (7-17); Calcium 10.5 mg/dL (8.4-10.2); Carbon Dioxide 26 mmol/L (22-32); Chloride 102 mmol/L (98-107); Estimated Glomerular Filt Rate 52 mL/min (>60); Globulin 2.7 g/dL (1.7-4.1); Glucose 131 mg/dL (80-110); HEMOLYSIS < 15 (0-50); Magnesium 1.9 mg/dL (1.6-2.3); Potassium 3.7 mmol/L (3.4-5.1); Sodium 137 mmol/L (137-145); Total Protein 6.9 g/dL (6.3-8.2); Uric Acid 7.1 mg/dL (2.5-6.2)
[2024-01-16 16:03] LABS: TSH w/ Reflex to FT4 1.65 uIU/mL (0.47-4.68)
== END ==
PROVIDERS: PCP Family Medicine; Referring Provider Family Medicine; Visit Provider Family Medicine
DX: I48.91 Unspecified atrial fibrillation (principal); R73.09 Other abnormal glucose; R53.83 Other fatigue; N18.30 Chronic kidney disease, stage 3 unspecified; E78.5 Hyperlipidemia, unspecified; I44.7 Left bundle-branch block, unspecified; I10 Essential (primary) hypertension; R42 Dizziness and giddiness; M25.50 Pain in unspecified joint; R94.31 Abnormal electrocardiogram [ECG] [EKG]
CPT/HCPCS: 36415; 80053; 81001; 83036; 83735; 84443; 84550; 85025; 85651; 87086

== ENCOUNTER → 2024-02-01 15:08 | Outpatient (CLI) | payer MEDICARE, OTHER, SELFPAY | PROVIDERS: PCP Family Medicine; Referring Provider Family Medicine; Visit Provider Family Medicine | DX: R42 Dizziness and giddiness (principal); R06.02 Shortness of breath; I48.91 Unspecified atrial fibrillation; R53.83 Other fatigue; I44.7 Left bundle-branch block, unspecified; I10 Essential (primary) hypertension; I48.92 Unspecified atrial flutter | CPT/HCPCS: 93242; 93244 ==

== ENCOUNTER 2024-06-15 15:28 | Emergency (ER) | payer MEDICARE, OTHER, SELFPAY ==
--- NOTE | 2024-06-15 15:45 | DI.RAD.S_ITS ---
PROCEDURE: XR CHEST 1V INDICATIONS: Shortness of breath TECHNIQUE: One view of the chest was acquired. COMPARISON: [facility], CR, XR CHEST 2V, 08/18/2022, 11:16. FINDINGS: Surgical changes and devices: None. Lungs and pleura: Lungs are clear. No pleural effusions or pneumothorax. Mediastinum: Mediastinal contours appear normal. Heart size is normal. Bones and chest wall: No suspicious bony lesions. Overlying soft tissues appear unremarkable. IMPRESSION: No acute cardiopulmonary abnormality is seen. Dictated by: Kiran Pendleton M.D. on 06/15/2024 at 16:53 Approved by: Kiran Pendleton M.D. on 06/15/2024 at 16:53
--- NOTE | 2024-06-15 15:45 | EKG_ITS ---
[address] [address] Test Date: 2024-06-15 Pat Name: Yudi Rowley Department: Room: Gender: Female Geologist: KASI : 1935 Requested By: Order Number: [id number] Reading MD: Sebastian Jacobsen Measurements Intervals [place] Rate: 91 P: 35 CO: 270 QRS: -16 QRSD: 100 T: 55 QT: 368 QTc: 452 Interpretive Statements Sinus rhythm with 1st degree AV block Minimal voltage criteria for LVH, may be normal variant ( [place] product ) Electronically Signed On 06-16-2024 18:29:22 PDT by Sebastian Jacobsen
[2024-06-15 15:46] VITALS: BP 137/79; PULSE 90; RESP 20; TEMP 36.8; O2SAT 96; BMI 28.3
[2024-06-15 16:09] LABS: Add Manual Diff / Slide Review NO; Basophils Absolute Auto 100 /uL (0-100); Basophils Percent Auto 0.5 % (0-2); Eosinophils Absolute Auto 100 /uL (0-450); Eosinophils Percent Auto 0.4 % (2-4); Hematocrit 43.3 % (36-46); Hemoglobin 14.8 g/dL (12.0-16.0); Lymphocytes Absolute Auto 1400 /uL (1100-4500); Lymphocytes Percent Auto 8.6 % (25-40); Mean Corpuscular HGB Conc 34.1 % (30-36); Mean Corpuscular Hemoglobin 31.2 PG (26-34); Mean Corpuscular Volume 91.6 fL (80-100); Monocytes Absolute Auto 800 /uL (0-900); Monocytes Percent Auto 4.9 % (3-14); Neutrophils Absolute Auto 13500 /uL (1500-7000); Neutrophils Percent Auto 85.6 % (50-75); Platelet Count 198 X10^3/uL (150-400); Red Blood Cell Count 4.73 X10^6/uL (4.0-5.2); Red Cell Distribution Width 12.9 % (11.6-14.8); White Blood Cell Count 15.8 X10^3/uL (4.5-11.0)
[2024-06-15 16:10] LABS: INR 1.8 (0.9-1.3); Prothrombin Time 20.5 SECONDS (9.4-12.5)
[2024-06-15 16:14] LABS: Alanine Aminotransferase 27 IU/L (<35); Albumin 4.6 g/dL (3.5-5.0); Albumin Globulin Ratio 1.6 (1.0-2.8); Alkaline Phosphatase 52 U/L (38-126); Aspartate Aminotransferase 27 IU/L (14-36); BUN Creatinine Ratio 20.4 (6-22); Bilirubin Total 0.4 mg/dL (0.2-1.3); Blood Urea Nitrogen 30 mg/dL (7-17); Calcium 10.3 mg/dL (8.4-10.2); Carbon Dioxide 25 mmol/L (22-32); Chloride 103 mmol/L (98-107); Estimated Glomerular Filt Rate 34 mL/min (>60); Globulin 2.9 g/dL (1.7-4.1); Glucose 121 mg/dL (80-110); HEMOLYSIS < 15 (0-50); Lactate (Lactic Acid) 1.7 mmol/L (0.7-2.1); Sodium 137 mmol/L (137-145); Total Protein 7.5 g/dL (6.3-8.2)
[2024-06-15 16:26] LABS: NT-proBNP (BNP-Adult 18+) 67 pg/mL (<450); Troponin I < 0.012 ng/mL (0.01-0.034)
[2024-06-15 20:09] VITALS: BP 182/80; PULSE 98; RESP 20; TEMP 37.2; O2SAT 98
[2024-06-15 21:26] VITALS: BP 140/75; PULSE 106; RESP 20; O2SAT 96
== END 2024-06-15 21:34 | disposition left against medical advice (07) ==
PROVIDERS: Emergency Medicine; Emergency Provider Student in an Organized Health Care Education/Training Program; PCP Family Medicine
DX: I10 Essential (primary) hypertension (principal); I48.91 Unspecified atrial fibrillation; Z79.01 Long term (current) use of anticoagulants; R06.02 Shortness of breath; I44.0 Atrioventricular block, first degree
CPT/HCPCS: 36415; 71045; 80053; 83605; 83880; 84484; 85025; 85610; 93005; 99283

== ENCOUNTER → 2024-10-24 17:23 | Outpatient (CLI) | payer MEDICARE, OTHER, SELFPAY ==
[2024-10-24 17:44] LABS: Appearance Urine UA CLEAR; Bilirubin Urine UA NEGATIVE (NEGATIVE); Color Urine UA YELLOW; Glucose Urine UA NEGATIVE (Negative); Ketones Urine UA NEGATIVE (NEGATIVE); Leukocyte Esterase Urine UA 2+ (NEGATIVE); Nitrite Urine UA NEGATIVE (Negative); Occult Blood Urine UA TRACE-INTACT (Negative); Protein Urine UA NEGATIVE (Negative); Specific Gravity Urine UA 1.015 (1.000-1.035); Urobilinogen Urine UA 0.2 E.U./dL (0.2)
[2024-10-24 17:45] LABS: pH Urine UA 6.0 (4.5-8.0)
[2024-10-24 17:50] LABS: Culture Indicated Urine Specimen Cultured
== END ==
PROVIDERS: PCP Family Medicine; Referring Provider Family Medicine; Visit Provider Family Medicine
DX: R35.0 Frequency of micturition (principal); M54.50 Low back pain, unspecified
CPT/HCPCS: 81001; 87086

== ENCOUNTER → 2024-10-31 12:22 | Outpatient (CLI) | payer MEDICARE, OTHER, SELFPAY ==
--- NOTE | 2024-10-31 | DI.ECHO.S_ITS ---
[facility] : : [address] : : [place] : : [address] : : Phone: [phone] Echocardiogram Report + + :Name: KELSIE KAPLAN Study Date: 10/31/2024 Height: 62 in : :[facility] ReadingLocation: Weight: 152 lb : : Gender: Female BSA: 1.7 m2 : :: 1935 Age: 89 yrs BP: 113/66 mmHg: :Reason For Study: ATRIAL FIBRILLATION : :Ordering Physician: LUTHER DIEGO Performed By: Arianna Lester : :Referring: LUTHER DIEGO : + + Interpretation Summary 1. The left ventricular contractility is normal. Estimated ejection fraction is greater than 55% with no segmental wall motion abnormalities. No LVH. Indeterminate diastolic function. 2. The right ventricular contractility is normal. 3. Moderate left atrial enlargement. Mild right atrium and right ventricular enlargement. The left ventricular cavity is of normal size. 4. Mild mitral regurgitation. 5. Mild to moderate aortic insufficiency. 6. Mild tricuspid regurgitation with estimated pulmonary systolic artery pressures of 28 mmHg. 7. Trace to mild pulmonic insufficiency. 8. No obvious intracardiac shunts. 9. No obvious intracardiac masses or thrombi. 10. No hemodynamically significant pericardial effusion. Conclusion: Normal biventricular systolic function with mild to moderate valvular insufficiencies. When compared with previous echocardiogram, there does appear to be progression of valvular heart disease., There were frequent pauses and first-degree AV block noted on ECG tracing of this echocardiogram. Procedure: A two-dimensional transthoracic echocardiogram with color flow and Doppler was performed. The study quality was technically adequate. Comparison is made with the echocardiogram of 01/24/2019. The patient was in sinus bradycardia with heart rates between 48-60 bpm during the exam. Left Ventricle: The left ventricle is normal in size and wall thickness. The ejection fraction is estimated to be 55-60%. Diastolic function is indeterminate. Right Ventricle: The right ventricle is mildly dilated. The right ventricular systolic function is normal. Atria: The left atrium is moderately dilated. The right atrium is mildly dilated. There is no Doppler evidence for an interatrial shunt. Mitral Valve: The mitral valve leaflets appear borderline thickened. There is mild mitral annular calcification. There is mild mitral regurgitation. Aortic Valve: The aortic valve is trileaflet. The aortic valve opens well. There is no aortic valve stenosis. There is mild to moderate aortic regurgitation. Tricuspid Valve: The tricuspid valve leaflets are thin and pliable. There is mild tricuspid regurgitation. The right ventricular systolic pressure is estimated to be at least 28 mmHg based on an estimated right atrial pressure of 3 mm Hg. Pulmonic Valve: The pulmonic valve leaflets are thin and pliable; valve motion is normal. There is mild pulmonic regurgitation. Great Vessels: The aortic root is normal size. The ascending aorta is at the upper limits of normal in size. The IVC is of normal diameter and collapses greater than 50% with a sniff. This suggests a low right atrial pressure of 3 mm Hg. Pericardium/ Pleura There is no pericardial effusion. There is no pleural effusion. MMode/2D Measurements & Calculations LVIDd: 4.6 cm LVOT diam: 2.0 cm LVIDs: 3.2 cm Ao root diam: 3.1 cm FS: 30.5 % asc Aorta Diam: 3.9 cm IVSd: 0.78 cm Ao Arch Diam (Prox Trans): 2.3 cm LVPWd: 0.80 cm LV aaron. diameter/BSA (cm/m^2): 2.7 LV sys. diameter/BSA (cm/m^2): 1.9 LA A2 area: 24.4 cm2 RA long axis: 5.5 cm LA A4 area: 21.7 cm2 RA area: 20.3 cm2 LA length (vol): 5.9 cm RA vol: 64.3 ml LA vol: 76.1 ml RA : 37.8 ml/m2 LA vol index: 44.7 ml/m2 IVC diam: 1.1 cm RVD1 (basal): 4.5 cm RVD2 (mid): 3.3 cm TAPSE: 1.4 cm Doppler Measurements & Calculations Ao V2 max: 130.6 cm/sec LVOT Max Isacc: 82.6 cm/sec Ao V2 mean: 88.3 cm/sec LV V1 max P.7 mmHg Ao max P.9 mmHg LV V1 VTI: 20.1 cm Ao mean P.5 mmHg ANUPAM(I,D): 2.0 cm2 Ao V2 VTI: 30.7 cm ANUPAM(V,D): 1.9 cm2 sev ratio: 0.65 ANUPAM indexed to BSA (cm^2/m^2): 1.2 AI P1/2t: 454.6 msec AI dec slope: 277.5 cm/sec2 MV E max isacc: 82.2 cm/sec TR max isacc: 251.9 cm/sec MV A max isacc: 81.5 cm/sec TR max P.4 mmHg MV E/A: 1.0 PA V2 max: 80.7 cm/sec Med Peak E' Isacc: 5.2 cm/sec PA V2 mean: 54.8 cm/sec E/E' med: 15.7 PA mean P.4 mmHg Lat Peak E' Isacc: 11.4 cm/sec PA pr(Accel): 28.5 mmHg E/E' lat: 7.2 E/e' average: 11.5 MV dec time: 0.20 sec SV(LVOT): 60.3 ml Reading Physician:GASTON
== END ==
PROVIDERS: PCP Family Medicine; Referring Provider Internal Medicine; Visit Provider Internal Medicine
DX: I48.0 Paroxysmal atrial fibrillation (principal); I51.7 Cardiomegaly; I34.0 Nonrheumatic mitral (valve) insufficiency; I35.1 Nonrheumatic aortic (valve) insufficiency; I07.1 Rheumatic tricuspid insufficiency; I77.1 Stricture of artery
CPT/HCPCS: 93306

== ENCOUNTER → 2024-12-07 15:39 | Outpatient (CLI) | payer MEDICARE, OTHER, SELFPAY ==
[2024-12-07 16:20] LABS: Add Manual Diff / Slide Review NO; Hematocrit 41.2 % (36-46); Hemoglobin 13.9 g/dL (12.0-16.0); Lymphocytes Absolute Auto 2100 /uL (1100-4500); Mean Corpuscular HGB Conc 33.6 % (30-36); Mean Corpuscular Hemoglobin 30.8 PG (26-34); Mean Corpuscular Volume 91.5 fL (80-100); Platelet Count 185 X10^3/uL (150-400)
[2024-12-07 16:40] LABS: Alanine Aminotransferase 24 IU/L (<35); Albumin 4.6 g/dL (3.5-5.0); Albumin Globulin Ratio 2.0 (1.0-2.8); Alkaline Phosphatase 54 U/L (38-126); Blood Urea Nitrogen 33 mg/dL (7-17); Calcium 10.2 mg/dL (8.4-10.2); Carbon Dioxide 26 mmol/L (22-32); Chloride 105 mmol/L (98-107); Estimated Glomerular Filt Rate 44 mL/min (>60); Globulin 2.3 g/dL (1.7-4.1); Glucose 96 mg/dL (70-99); HEMOLYSIS < 15 (0-50); Potassium 3.8 mmol/L (3.4-5.1); Sodium 140 mmol/L (137-145); Total Protein 6.9 g/dL (6.3-8.2)
[2024-12-07 16:47] LABS: NT-proBNP (BNP-Adult 18+) 273 pg/mL (<450)
== END ==
PROVIDERS: PCP Family Medicine; Referring Provider Family Medicine; Visit Provider Family Medicine
DX: R06.02 Shortness of breath (principal); I48.91 Unspecified atrial fibrillation; R53.82 Chronic fatigue, unspecified; N18.31 Chronic kidney disease, stage 3a
CPT/HCPCS: 36415; 80053; 83880; 85025

== ENCOUNTER → 2024-12-10 14:22 | Outpatient (CLI) | payer MEDICARE, OTHER, SELFPAY ==
--- NOTE | 2024-12-10 14:23 | DI.CT.S_ITS ---
PROCEDURE: CT CHEST WO CON INDICATIONS: worsening breathing concerns with activity; CXR neg TECHNIQUE: Noncontrast 5 mm thick sections acquired from the pulmonary apices to the posterior costophrenic angles. 1 mm lung window, 5 mm thick coronal and sagittal and 7 mm axial MIP reformats were then acquired. For radiation dose reduction, the following was used: automated exposure control, adjustment of mA and/or kV according to patient size. COMPARISON: [facility], CR, XR CHEST 1V, 06/15/2024, 16:30. FINDINGS: Image quality: Diagnostic. Lower Neck: No enlarged lymph nodes. Thyroid: No thyroid nodules which require sonographic follow up, per consensus guidelines. Axillae: No enlarged lymph nodes. Chest Wall: Unremarkable. Bones: No aggressive osseous lesion Lungs and Pleura: No pneumothorax or pleural effusions. No consolidation or suspicious nodules. Heart: Heart size is normal. No pericardial effusion. Coronary calcifications. Thoracic Vessels: The aorta and pulmonary arteries demonstrate normal size. Atherosclerotic calcifications. Mediastinum and Gena: No enlarged lymph nodes. Esophagus: No wall thickening. No hiatal hernia. Upper Abdomen: Hepatic steatosis. Left renal pelvic cysts, partially imaged. IMPRESSION: No acute abnormality. Hepatic steatosis. Dictated by: Robe Lizama M.D. on 12/10/2024 at 17:57 Approved by: Robe Lizama M.D. on 12/10/2024 at 18:01
== END ==
PROVIDERS: PCP Family Medicine; Referring Provider Family Medicine; Visit Provider Family Medicine
DX: R06.02 Shortness of breath (principal); R06.89 Other abnormalities of breathing; I25.10 Atherosclerotic heart disease of native coronary artery without angina pectoris; N28.1 Cyst of kidney, acquired; K76.0 Fatty (change of) liver, not elsewhere classified
CPT/HCPCS: 71250

== ENCOUNTER → 2024-12-17 09:46 | Outpatient (CLI) | payer MEDICARE, OTHER, SELFPAY | LOC: RESP 09:47 | PROVIDERS: PCP Family Medicine; Referring Provider Family Medicine; Visit Provider Family Medicine | DX: R06.02 Shortness of breath (principal); R42 Dizziness and giddiness | CPT/HCPCS: 94060; 94726; 94729 ==